=== PATIENT | male | born 1985 | race Caucasian/White ===

== ENCOUNTER 2017-03-24 19:47 | Emergency (ER) | payer OTHER ==
[2017-03-24 20:00] VITALS: BP 106/61
[2017-03-24] MEDS ORDERED: SULFAMETH/TRIMETH DS 800/160 MG TABLET PO STA (20:58)
[2017-03-24] MEDS ORDERED: CEPHALEXIN 250 MG CAPSULE PO STA (20:58)
--- NOTE | 2017-03-24 21:05 | ED Physician Documentation ---
PD HPI LOWER EXT INJURY - Stated complaint Stated Complaint: LT MONTEJO PX - Chief complaint Chief Complaint: Laceration - History obtained from History obtained from: Patient - History of Present Illness PD HPI LOW EXT INJURY LOCATION: Left, Lower leg Type of injury: Other (abrasion) Where injury occurred: [place] Timing - onset: How many weeks ago (1) Timing - duration: Weeks (1) Timing - details: Gradual onset Pain level max: 2 Pain level now: 2 Improved by: Rest Worsened by: Moving, Palpating Associated symptoms: Swelling, Discolored (erythema). No: Weakness, Numbness, Tingling Similar symptoms before: Has not had sx before Recently seen: Not recently seen - Additional information Additional information: sustained an abrasion to the LLE last week. Now increasing redness. Review of Systems Constitutional: denies: Fever GI: denies: Vomiting Neurologic: denies: Focal weakness, Numbness PD PAST MEDICAL HISTORY - Past Medical History Past Medical History: No - Past Surgical History Past Surgical History: Yes Ortho: Shoulder arthroplasty - Present Medications Home Medications: Ambulatory Orders Medication Instructions Recorded Confirmed Cephalexin [Keflex] 500 mg PO Q6H #28 capsule 03/24/17 Sulfamethox/Trimeth 800/160 1 each PO BID #14 tablet 03/24/17 [Bactrim Ds 800/160] - Allergies Allergies/Adverse Reactions: Allergies Allergy/AdvReac Type Severity Reaction Status Date / Time No Known Drug Allergies Allergy Verified 03/24/17 19:57 - Social History Does the pt smoke?: No Smoking Status: Never smoker Does the pt drink ETOH?: Yes ETOH Use: Beer - Immunizations Immunizations are current?: Yes - POLST Patient has POLST: No PD ED PE NORMAL - Vitals Vital signs reviewed: Yes - General General: Alert and oriented X 3, No acute distress - Extremities Extremities: Other (L calf, lateral aspect - mild erythema, large abrasion with honey crusting 8x14cm. ) - Neuro Neuro: Alert and oriented X 3 - Psych Psych: Normal mood, Normal affect Results - Vitals Vitals: Oxygen O2 Source Room air PD MEDICAL DECISION MAKING - ED course Complexity details: considered differential, d/w patient ED course: Patient with a large abrasion to the left lower extremity that now appears to have a secondary infection. Will place on antibiotics for this. Patient is well-appearing, nontoxic. Afebrile. No bony tenderness. No evidence of DVT. Patient counseled regarding signs and symptoms for which I believe and urgent re -evaluation would be necessary. Patient with good understanding of and agreement to plan and is comfortable going home at this time This document was made in part using voice recognition software. While efforts are made to proofread this document, sound alike and grammatical errors may occur. Departure - Departure Disposition: Home, Self Care Clinical Impression: Abrasion Cellulitis Qualifiers: Site of cellulitis: extremity Site of cellulitis of extremity: lower extremity Laterality: left Qualified Code(s): L03.116 - Cellulitis of left lower limb Condition: Good Instructions: ED Infec Skin Cellulitis, ED Abrasion Follow-Up: your,doctor in 3 days for wound check [Other] Prescriptions: Sulfamethox/Trimeth 800/160 [Bactrim Ds 800/160] 1 each PO BID #14 tablet Cephalexin [Keflex] 500 mg PO Q6H #28 capsule Comments: Take all antibiotics until gone. Return if you worsen. Discharge Date/Time: 03/24/17 21:15
[2017-03-24] MEDS ORDERED: CEPHALEXIN 250 MG CAPSULE PO ONE (21:06)
[2017-03-24] MEDS ORDERED: SULFAMETH/TRIMETH DS 800/160 MG TABLET PO ONE (21:06)
== END 2017-03-24 21:15 | disposition home or self-care (01) ==
LOC: ED 19:47
DX: S80.812A Abrasion, left lower leg, initial encounter (principal); L03.116 Cellulitis of left lower limb; X58.XXXA Exposure to other specified factors, initial encounter; Y92.830 Public park as the place of occurrence of the external cause
CPT/HCPCS: 99283; A9270

== ENCOUNTER 2018-01-02 14:40 | Emergency (ER) | payer OTHER ==
[2018-01-02] MEDS ORDERED: HYDROcod/ACETAM 5/325 MG TABLET PO STA (15:08)
[2018-01-02 15:14] LABS: BILIRUBIN,URINE NEGATIVE (NEGATIVE); GLUCOSE, URINE (UA) NEGATIVE (NEGATIVE); KETONES,URINE (UA) NEGATIVE (NEGATIVE); LEUKOCYTE ESTERASE, URINE NEGATIVE (NEGATIVE); NITRITE,URINE NEGATIVE (NEGATIVE); OCCULT BLOOD,URINE NEGATIVE (NEGATIVE); PROTEIN,URINE NEGATIVE (NEGATIVE); UROBILINOGEN,URINE 0.2 (NORMAL) E.U./dL (NORMAL)
--- NOTE | 2018-01-02 15:18 | ED Physician Documentation ---
PD HPI ABD PAIN - Stated complaint Stated Complaint: L SIDE PX - Chief complaint Chief Complaint: Abd Pain - History obtained from History obtained from: Patient, Family () - History of Present Illness Timing - onset: Other (For the last 8 days he has had left flank pain radiating to the left testicle that is somewhat worse with motion and not associated with fevers or chills or trouble urinating. He is a couple of weeks out from a vasectomy.) Review of Systems Constitutional: denies: Fever, Chills Respiratory: denies: Dyspnea, Cough GI: reports: Abdominal Pain, Constipation (He was constipated last week and then had a few days of diarrhea and now his BMs are back to normal.). denies: Nausea, Vomiting PD PAST MEDICAL HISTORY - Past Surgical History Past Surgical History: Yes Ortho: Shoulder arthroplasty - Present Medications Home Medications: Ambulatory Orders Medication Instructions Recorded Confirmed Cyclobenzaprine [Flexeril] 10 mg PO TID PRN #20 tablet 01/02/18 Ibuprofen [Motrin] 800 mg PO Q8H PRN #30 tablet 01/02/18 - Allergies Allergies/Adverse Reactions: Allergies Allergy/AdvReac Type Severity Reaction Status Date / Time No Known Drug Allergies Allergy Verified 01/02/18 14:46 - Social History Does the pt smoke?: No Smoking Status: Never smoker Does the pt drink ETOH?: Yes - Immunizations Immunizations are current?: Yes - POLST Patient has POLST: No PD ED PE NORMAL - Vitals Vital signs reviewed: Yes - General General: Alert and oriented X 3, No acute distress - Abdomen Abdomen: Normal bowel sounds, Soft, Non tender - Male Male : Other (Testes are nontender with no evidence of infection.) - Back Back: Other (He is tender over the left flank there is no rash.) - Neuro Neuro: Alert and oriented X 3, Normal speech - Psych Psych: Normal mood, Normal affect Results - Vitals Vitals: Vital Signs - 24 hr 01/02/18 14:44 Temperature 36.7 C Heart Rate 72 Respiratory 16 Rate Blood Pressure 141/78 H O2 Saturation 99 Oxygen O2 Source Room air - Labs Labs: Laboratory Tests 01/02/18 01/02/18 01/02/18 14:58 15:34 15:34 WBC 5.8 RBC 4.62 L Hgb 15.0 Hct 42.1 MCV 91.1 MCH 32.5 H MCHC 35.6 RDW 12.8 Plt Count 179 MPV 9.1 Neut # 2.8 Lymph # 2.4 [place] # 0.5 Eos # 0.1 Baso # 0.0 Absolute Nucleated RBC 0.00 Nucleated RBC % 0.0 Sodium 138 Potassium 3.9 Chloride 104 Carbon Dioxide 27 Anion Gap 7.0 BUN 17 Creatinine 1.2 Estimated GFR (MDRD) 71 L Glucose 94 Calcium 9.1 Total Bilirubin 0.8 AST 24 ALT 32 Alkaline Phosphatase 65 Total Protein 7.4 Albumin 4.5 Globulin 2.9 Albumin/Globulin Ratio 1.6 Lipase 14 L Urine Color YELLOW Urine Clarity CLEAR Urine pH 7.0 Ur Specific [place] 1.015 Urine Protein NEGATIVE Urine Glucose (UA) NEGATIVE Urine Ketones NEGATIVE Urine Occult Blood NEGATIVE Urine Nitrite NEGATIVE Urine Bilirubin NEGATIVE Urine Urobilinogen 0.2 (NORMAL) Ur Leukocyte Esterase NEGATIVE Ur Microscopic Review NOT INDICATED Urine Culture Comments NOT INDICATED - Rads (name of study) CT KUB Radiology: EMP read contemporaneously (neg) Departure - Departure Disposition: Home, Self Care Clinical Impression: Flank pain Abdominal pain Qualifiers: Abdominal location: left upper quadrant Qualified Code(s): R10.12 - Left upper quadrant pain Condition: Good Record reviewed to determine appropriate education?: Yes Instructions: ED Abdominal Pain Unkn Cause Prescriptions: Cyclobenzaprine [Flexeril] 10 mg PO TID PRN #20 tablet PRN Reason: Pain Ibuprofen [Motrin] 800 mg PO Q8H PRN #30 tablet PRN Reason: PAIN &/OR FEVER Comments: Call your doctor to arrange a follow-up appointment, make the next available appointment. In the interim, return anytime if worse or if new symptoms develop. Your blood pressure was elevated today on check into the emergency department. This does not mean that you have hypertension, it is a common phenomenon to come to the emergency department and have elevated blood pressure. I recommend that you see your primary care physician within the week to have it rechecked when you are feeling better.
[2018-01-02 15:20] LABS: CLARITY,URINE CLEAR (CLEAR)
[2018-01-02 15:45] LABS: BASOPHILS % (AUTO) 0.5 %; EOSINOPHILS # (AUTO) 0.1 10^3/uL (0.0-0.7); LYMPHOCYTES # (AUTO) 2.4 10^3/uL (1.5-3.5); LYMPHOCYTES % (AUTO) 41.5 %; MEAN CORPUSCULAR HEMOGLOBIN 32.5 pg (27.0-31.0); MEAN CORPUSCULAR HGB CONC 35.6 g/dL (32.0-36.0); MEAN CORPUSCULAR VOLUME 91.1 fL (80.0-94.0); MEAN PLATELET VOLUME 9.1 fL (7.4-11.4); MONOCYTES # (AUTO) 0.5 10^3/uL (0.0-1.0); MONOCYTES % (AUTO) 8.5 %; NEUTROPHILS # (AUTO) 2.8 10^3/uL (1.5-6.6); NEUTROPHILS % (AUTO) 48.5 %; PLT - PLATELET COUNT 179 10^3/uL (130-450); RED BLOOD COUNT 4.62 10^6/uL (4.70-6.10); RED CELL DISTRIBUTION WIDTH 12.8 % (12.0-15.0); WHITE BLOOD COUNT 5.8 x10^3/uL (4.8-10.8)
[2018-01-02 15:51] LABS: ALBUMIN 4.5 g/dL (3.2-5.5); ALBUMIN/GLOBULIN RATIO 1.6 (1.0-2.2); BILIRUBIN,TOTAL 0.8 mg/dL (0.2-1.0); CALCIUM 9.1 mg/dL (8.5-10.3); CREATININE 1.2 mg/dL (0.6-1.2); TOTAL PROTEIN 7.4 g/dL (6.7-8.2)
--- NOTE | 2018-01-02 16:05 | CT Report ---
EXAM: CT ABDOMEN AND PELVIS (CT KUB) EXAM DATE: 01/02/2018 03:28 PM. CLINICAL HISTORY: Left flank pain COMPARISONS: None. TECHNIQUE: Routine axial helical CT imaging was performed through the abdomen and pelvis without IV c ontrast. Reconstructions: Coronal and sagittal. In accordance with CT protocol optimization, one or more of the following dose reduction techniques w ere utilized for this exam: automated exposure control, adjustment of mA and/or KV based on patient s ize, or use of iterative reconstructive technique. FINDINGS: Lung Bases: Unremarkable. Right Kidney/Ureter: No stones, hydronephrosis, or hydroureter. No perinephric fat stranding. Left Kidney/Ureter: No stones, hydronephrosis, or hydroureter. No perinephric fat stranding. Other Solid Organs: Noncontrast images of the solid organs are grossly unremarkable. Gallbladder/Bile Ducts: Unremarkable. Peritoneal Cavity: No free fluid, free air or monalisa adenopathy. Bowel is grossly unremarkable. Pelvic Organs: No bladder stones or wall thickening. Noncontrast images of the visualized pelvic orga ns are unremarkable. Vasculature: Unremarkable. Other: None. IMPRESSION: Negative noncontrast CT of the abdomen and pelvis. The kidneys demonstrate no stones or hydronephrosi s. [facility] Referring Provider Line: [phone] SITE ID: [id number]
[2018-01-02 16:30] VITALS: BP 135/80
== END 2018-01-02 16:30 | disposition home or self-care (01) ==
LOC: ED 14:40
DX: R10.12 Left upper quadrant pain (principal); N50.812 Left testicular pain; R03.0 Elevated blood-pressure reading, without diagnosis of hypertension; Z98.52 Vasectomy status
CPT/HCPCS: 36415; 74176; 80053; 81003; 83690; 85025; 99283; A9270; 81001; 87086

== ENCOUNTER 2023-08-04 20:01 | Emergency (ER) | payer OTHER ==
[2023-08-04 20:23] VITALS: BP 133/86; O2SAT 97
[2023-08-04] MEDS ORDERED: KETOROLAC 30 MG/ML VIAL IM STA (20:49)
[2023-08-04] MEDS ORDERED: oxyCODONE 5 MG TABLET PO STA (20:49)
[2023-08-04] MEDS ORDERED: CHERRY SYRUP 10 ML UDC PO ONE (20:52)
[2023-08-04] MEDS ORDERED: DEXAMETHASONE 10 MG/ML VIAL PO STA (20:52)
--- NOTE | 2023-08-04 20:52 | ED Physician Documentation ---
History of Present Illness - Stated complaint Stated Complaint: BACK PX - Chief complaint Chief Complaint: Back Pain - Additonal information Additional information: 38-year-old male presents emergency department for evaluation of acute on ch ronic low back pain. States has had this for years and it typically flares 2-3 times a year. This morning he was climbing a ladder when he reached and felt a sharp pain in his low back. He has not taken anything for pain. Denies saddle anesthesia, loss of bowel or bladder function. No history of diabetes, cancer, intravenous drug use. No fevers. Typically he will take naproxen which helps t he pain. pt finds no positions of comfort with sitting or standing Review of Systems Constitutional: denies: Fever Cardiac: reports: Reviewed and negative Respiratory: reports: Reviewed and negative GI: reports: Reviewed and negative : reports: Reviewed and negative Skin: reports: Reviewed and negative Musculoskeletal: reports: Back pain. denies: Extremity pain Neurologic: denies: Focal weakness, Numbness PD PAST MEDICAL HISTORY - Past Surgical History Past Surgical History: Yes Ortho: Shoulder arthroplasty - Present Medications Home Medications: Ambulatory Orders Medication Instructions Recorded Confirmed Acetaminophen [Tylenol] 500 mg PO Q4-6H #30 tablet 08/04/23 HYDROcod/ACETAM 5/325 [[place] 5/325] 1 tablet PO BID PRN #10 tablet 08/04/23 Ibuprofen [Motrin] 600 mg PO Q6H PRN #30 tab 08/04/23 - Allergies Allergies/Adverse Reactions: Allergies Allergy/AdvReac Type Severity Reaction Status Date / Time tetanus and diphtheria AdvReac Edema Verified 08/04/23 20:18 toxoids - Social History Does the pt smoke?: No Smoking Status: Never smoker Does the pt drink ETOH?: Yes Does the pt have substance abuse?: No - Immunizations Immunizations are current?: Yes - POLST Patient has POLST: No PD ED PE NORMAL - General General: Alert and oriented X 3. No: No acute distress (appears uncomfortable) - HEENT HEENT: Atraumatic, Moist mucous membranes - Neck Neck: Supple, no meningeal sign - Cardiac Cardiac: RRR, No murmur - Respiratory Respiratory: No respiratory distress - Back Back: No: No spinal TTP (Midline lower lumbar sacral tenderness to pain without swelling rash or ecchymosis. Reduced forward flexion secondary to pain. Motor strength 5 of 5. No paresthesias. Antalgic gait.) - Derm Derm: Normal color, Warm and dry, No rash - Neuro Neuro: Alert and oriented X 3 Eye Opening: Spontaneous Motor: Obeys Commands Verbal: Oriented GCS Score: 15 Results - Vitals Vitals: Vital Signs - 24 hr 08/04/23 20:13 Temperature 36.6 C Heart Rate 75 Respiratory 16 Rate Blood Pressure 133/86 H O2 Saturation 97 Oxygen O2 Source Room air PD Medical Decision Making - ED course Complexity details: reviewed results, re-evaluated patient, d/w patient ED course: 38-year-old male presents emergency department for evaluation of acute on chronic low back pain. No recent falls or trauma. Reports he typically has flares 2-3 times a year. Typically would take naproxen but did not today. Has pain with almost any positioning, sitting or standing. No saddle anesthesia, loss of bowel or bladder function. On exam some midline lower lumbar sacral tenderness was elicited. Given the lack of red flags would defer advanced imaging as clinically I am not suspicious for epidural abscess or cauda equina. I discussed with patient and his the conservative care measures of recurrent back pain. He was given a dose of Toradol, Decadron and oxycodone here in the emergency department. On reevaluation is reporting his symptoms are better. He is advised to follow closely with [facility] for referral to physical therapy. Recommending Tylenol Motrin [id number] for analgesia with limited amount of hydrocodone. We discussed the usual emergent return precautions for failure symptoms resolved. Departure - Departure Clinical Impression: Low back pain Qualifiers: Chronicity: acute Back pain laterality: midline Sciatica presence: without sciatica Qualified Code(s): M54.50 - Low back pain, unspecified Condition: Stable Record reviewed to determine appropriate education?: Yes Instructions: ED Back Care Tips Prescriptions: Ibuprofen [Motrin] 600 mg PO Q6H PRN #30 tab PRN Reason: Pain HYDROcod/ACETAM 5/325 [[place] 5/325] 1 tablet PO BID PRN #10 tablet PRN Reason: Pain Acetaminophen [Tylenol] 500 mg PO Q4-6H #30 tablet Comments: Florin was seen today in the emergency department because you have been having acute on chronic low back pain. He seemed to have flares 2-3 times a year. Today in the emergency department we did administer you a medication called Toradol which is an injectable form of an NSAID medication like ibuprofen. We also gave you a single dose of oxycodone and opiate pain medication that should begin to markedly help the pain over the next few hours. Finally we gave you a single dose of Decadron a steroid which is often very helpful for acute low back pain and inflammation. In general would like you to take ibuprofen 600 mg with food 3 times a day or alternate with Tylenol 500 mg also 3 times a day. For more severe pain I have sent a prescription for [place] to the [facility] in [place]. Please continue to follow closely with your primary care doctor. You will benefit from follow up with physical therapy or referral to a back pain specialist. Return to the ER if you develop any new or worsening symptoms such as numbness in your genital area or loss of control of your bowel or bladder function.
== END 2023-08-04 21:35 | disposition home or self-care (01) ==
LOC: ED 20:01
DX: M54.50 Low back pain, unspecified (principal)
CPT/HCPCS: 96372; 99283; 99284; A9270

== ENCOUNTER 2024-05-10 17:10 | Outpatient (CLI) | payer OTHER ==
--- NOTE | 2024-05-10 23:30 | XRAY Report ---
PROCEDURE: Shoulder 2+V RT INDICATIONS: PAIN IN RIGHT SHOULDER TECHNIQUE: 2 views of the shoulder were acquired. COMPARISON: None. FINDINGS: Bones: Well-corticated fragment adjacent to superior aspect of right acromioclavicular joint is seen likely represent remote injury. Mild acromioclavicular joint osteoarthritic changes are seen. No acu te fracture or dislocation. No suspicious bony lesions. Visualized ribs appear intact. Soft tissues: Ill-defined linear calcifications are noted adjacent to greater tuberosity of humeral head and may represent calcific tendinitis. The visualized lungs are within normal limits. IMPRESSION: 1. No acute shoulder fracture or dislocation. Suggestion of remote injury involving superior aspect o f right acromioclavicular joint with well-corticated fragment. Mild acromioclavicular joint osteoarth ritis. 2. Suggestion of calcific tendinitis involving distal rotator cuff tendon at its insertion on humeral head. Reviewed by: Johnie Cantu MD on 05/10/2024 11:28 PM PDT Approved by: Johnie Cantu MD on 05/10/2024 11:28 PM PDT Station ID: [id number]
== END 2024-05-10 17:11 | disposition home or self-care (01) ==
LOC: DI.S 17:10 → DI 17:11
PROVIDERS: ATTEND Physician Assistant
DX: M19.011 Primary osteoarthritis, right shoulder (principal)